=== PATIENT | male | born 1945 | race Caucasian/White ===

== ENCOUNTER 2016-07-31 19:55 | Inpatient (IN) ==
[2016-07-31] MEDS ORDERED: SODIUM CHLORIDE 0.9% 1,000 ML IV STA (20:29)
--- NOTE | 2016-07-31 21:07 | XRay Report ---
Portable chest Date: 07/31/2016 Clinical history: Shortness of breath Comparison: None Technique: Portable AP sitting chest Findings: The heart is minimally enlarged with uncoiling of the aorta. Minimal atelectasis. Degenerative changes. Impression: Minimal cardiomegaly with minimal atelectasis. PROCEDURE INTERPRETED AT [facility] DEPARTMENT OF RADIOLOGY Final Report Signed by: Dr. Shima Smith
[2016-07-31] MEDS ORDERED: ALBUTEROL/IPRATROPIUM 3 ML NEB RESP TX STA (21:31)
[2016-07-31 22:00] LABS: Basophils % 0.1 % (0.0-0.8); Eosinophils % 0.2 % (0.00-10.9); Hematocrit 43.9 VOL% (42.0-52.0); Hemoglobin 14.8 GM/DL (14.0-18.0); Immature Granulocytes % 1.2 %; Immature Granulocytes Absolute 0.19 #; Lymphocytes # 0.8 10*3/uL (1.4-4.0); Lymphocytes % 5.2 % (21.2-54.2); Mean Corpuscular HGB Conc 33.7 GM/DL (32-36); Mean Corpuscular Hemoglobin 29 PG (27-34); Mean Corpuscular Volume 84.6 FL (87-102); Mean Platelet Volume 10.4 FL (9.6-12.0); Monocytes # 1.1 10*3/uL (0.11-0.8); Neutrophils % 86.3 % (38.7-73.9); Platelet Count 150 T/CUMM (130-400); Red Blood Count 5.19 MC/CUMM (3.8-5.5); Red Cell Distribution Width 14.8 % (9.3-17.3); White Blood Count 16.2 T/CUMM (4-12)
[2016-07-31 22:08] LABS: Apearance,Urine Slightly Hazy (Clear); Bacteria,Urine Moderate /HPF (Few); Bilirubin,Urine Negative (Negative); Blood, Urine Large mg/dL (Negative); Glucose,Urine (UA) Negative (Negative); Granular Casts,Urine 1 /LPF (0-1); Ketones,Urine 20 mg/dL (Negative); Mucus,Urine Occasional /LPF (Occasional); Nitrite,Urine Negative (Negative); Protein,Urine 100 MG/DL; RBC,Urine 289 /HPF (0-4); Squamous Epithelial Cell,Urine Occasional /HPF (0-10); Urine Color Yellow (Yellow); Urine Specific Gravity 1.023 (1.001-1.035); WBC,Urine 33 /HPF (0-6)
[2016-07-31 22:14] LABS: INR 1.1; PT Patient Result 11.9 SECS; Partial Thromboplastin Time 33.1 SECS (0-40)
[2016-07-31 22:25] LABS: Albumin 3.1 G/DL (3.4-5.0); Bilirubin,Total 0.7 MG/DL (0.2-1.0); Calcium 8.3 MG/DL (8.5-10.1); Osmolality,Calculated 278.8 MOS/KG (273-304); Potassium 4.4 MMOL/L (3.5-5.1); Total Protein 6.6 G/DL (6.4-8.3)
[2016-07-31] MEDS ORDERED: ONDANSETRON 4 MG/2 ML VIAL ONE (22:27)
[2016-07-31] MEDS ORDERED: MORPHINE 2 MG/1 ML SYRINGE ONE (22:28)
[2016-07-31] MEDS ORDERED: ONDANSETRON 4 MG/2 ML VIAL IV STA (22:33)
[2016-07-31] MEDS ORDERED: MORPHINE 2 MG/1 ML SYRINGE IV STA (22:33)
[2016-07-31] MEDS ORDERED: HYDROmorphone 2 MG/1 ML VIAL ONE (23:47)
[2016-07-31] MEDS ORDERED: HYDROmorphone 2 MG/1 ML VIAL IV STA (23:49)
--- NOTE | 2016-08-01 02:07 | Emergency Department Note ---
Earl Hastings Brittany, am scribing for, and in the presence of, Herminio Oviedo MD 20:41. Preet Hastings William S., MD, personally performed the services described in this documentation, ascribed by Verena Elliott in my presence, and it is both accurate and complete . Arrival - Arrival Chief Complaint: Urogenital - Male ED Nursing Triage Note: C/O Urinary retention. Onset for a while, but worsened tonight and he couldn't void at all. Pt was seen by Dr. Suarez Monday for urinary hesitancy and is planned to have a procedure done at the end of the month- Pt doesn't know exactly what he is going to do. Pt reports that he has had this problem for a while and it seems to be getting worse. A fishman and leg bag was placed block captain. Pt received rocephin block captain Mode of Arrival: Stretcher Limitations: No Limitations Source: Patient, Significant other - History of Present Illness HPI Narrative: This is a 71 y/o white male,who presents to the ED by EMS with c/o urinary retention which started 13 days ago. His states he was seen on 07/[address] Suarez. His states pt has been cathed 5 different times in the past 13 days. His reports he has had a decreased PO intake, and confusion along with the urinary retention. Per EMS, pt was given Rocephin WEEKEND CAREGIVER and a fishman and leg bag was placed. Pt has no other complaints/pain in the ED at this time. Pt has a PMHx of HTN, peripheral neuropathy, GERD, back/neck problems, and degenerative disk disease. Pt has had a cholecystectomy, orthopedic surgery, spinal surgery, and total knee replacement. Pt denies a family medical Hx. Pt denies a social Hx. Onset (ago): day(s) (Started 13 days ago) Consistency: constant Severity: moderate Allergies/Adverse Reactions: Allergies Allergy/AdvReac Type Severity Reaction Status Date / Time No Known Allergies Allergy Verified 07/14/16 10:03 Home Medications: Home Medications Medication Instructions Recorded Confirmed Type Gabapentin Cap/Tab [Neurontin 300 mg PO BID 07/13/16 07/14/16 History Cap/Tab] HYDROcodone/ACETAMIN 7.5-325 1 tablet PO BID PRN 07/13/16 07/14/16 History [[place] 7.5-325] Omeprazole 40 mg PO BID 07/13/16 07/14/16 History Primidone 100 mg PO BEDTIME 07/13/16 07/14/16 History Propranolol Tab [Inderal Tab] 40 mg PO DAILY 07/13/16 07/14/16 History Tamsulosin [Flomax] 0.4 mg PO BID 07/13/16 07/14/16 History tiZANidine [Zanaflex] 4 mg PO BID 07/13/16 07/14/16 History traZODone [Desyrel] 50 mg PO BEDTIME 07/13/16 07/14/16 History Review of System - Review of System 12 point system: reviewed and no additional remarkable complaints except as stated - Review of System Genitourinary male: Present: other (Urinary retention ) Neurological: Present: confusion Additional ROS comments: Decreased PO Intake Medical,Surgical,& Family Hx - Medical History Cardio: History of: Hypertension Neurology: History of: Peripheral Neuropathy No history of: Seizures HEENT: History of: Eye Problem (glasses) Respiratory: No history of: Pneumonia (NO PNEUM VAC), Respiratory Problems (FLU VAC 2016) Gastrointestinal: History of: GERD Musculoskeletal: History of: Back/Neck Problems (Lumbar Disc Protrusion;Spinal Stenosis;Radiculopathy;PAIN), Degenerative Disk Disease (LUMBAR), Musculoskeletal Problems (BILATERAL KNEE PAIN) Other: No history of: Anesthesia Reactions - Surgical History Abdominal Surgeries: Surgical HX of: Cholecystectomy (PER DR. SUN'S HP) Orthopedic Surgeries: Surgical HX of;: Orthopedic Surgery (ELBOW SURGERY), Spinal Surgery (BACK SURGERY PER DR. SUN'S HP), Total Knee Replacement - Social History Smoking Status: Never smoker Frequency of Alcohol Use: None Type of Drug Use: None Exam Vital Signs: Vital Signs Temperature 98.8 F 07/31/16 19:55 Pulse Rate 125 H 08/01/16 01:00 Respiratory Rate 20 08/01/16 01:00 Blood Pressure 139/104 08/01/16 01:00 O2 Sat by Pulse Oximetry 94 L 08/01/16 01:00 - General General appearance: alert, in no apparent distress - Head Head exam: Present: atraumatic, normocephalic, normal inspection - Eye Eye exam: Present: normal appearance, PERRL, EOMI. Absent: conjunctival injection, nystagmus, miosis, mydriasis - ENT ENT exam: Present: normal exam, normal oropharynx, mucous membranes moist - Neck Neck exam: Present: normal inspection, full ROM, trachea midline. Absent: tenderness, meningismus, lymphadenopathy, thyromegaly - Chest Chest inspection: Present: normal inspection, symmetric chest wall rise. Absent : tenderness, rash, abscess - Respiratory Respiratory exam: Present: normal lung sounds bilaterally. Absent: rales, respiratory distress, rhonchi, stridor, wheezes - Cardiovascular Cardiovascular exam: Present: tachycardia, normal heart sounds - Abdominal Exam Abdominal exam: Present: soft, normal bowel sounds. Absent: distention, tenderness, guarding, rebound, rigidity - Rectal Exam Rectal exam: Present: deferred - Extremities Exam Extremities exam: Present: normal inspection, full ROM, normal capillary refill. Absent: tenderness, pedal edema, joint swelling, calf tenderness - Back Exam Back exam: Present: normal inspection, full ROM. Absent: tenderness, CVA tenderness (R), CVA tenderness (L), muscle spasm, rashes - Neurological Exam Neurological exam: Present: alert, oriented X3, CN II-XII intact, other (Slow speech pattern). Absent: motor sensory deficit - Psychiatric Psychiatric exam: Present: normal affect, normal mood. Absent: depressed, agitated, anxious, flat affect, manic - Skin Skin exam: Present: warm, dry, intact, normal color. Absent: rash, cyanosis, diaphoresis, erythema, pallor, mottled Course - Reevaluation(s) Reevaluation #1: Patient is evaluated on multiple occasions during the course of the ER stay. Patient has a fluctuating blood pressure significant hypotension on multiple occasions. Patient was aggressively fluid resuscitated with 2 L of fluid. Patient's blood pressure stabilized at this time and the patient is clinically improved. Even after the patient's pressure has been stabilized she continues to have episodes where his pressure drops into the 80s and 90s systolic. CT scan of the abdomen and pelvis was obtained which did show evidence of infection confined to the area of the bladder and prostate but no evidence of perinephric stranding. No other acute abnormalities consistent with infection were seen on the abdominal pelvic CT. A CT scan of the head is also obtained which does not show any evidence of intracranial abnormality. The patient is clinically improved at this time and states that he feels better. Cornel count does return at 16,000. The patient's hemoglobin is stable. The patient will be admitted to the ICU at this time for further evaluation and treatment. Results - Labs CBC & BMP: 07/31/16 21:13 07/31/16 20:44 - Diagnostic Findings Procedure: Chest x-ray: report reviewed by me (Minimal cardiomegaly with minimal atelectasis. ) Critical Care Time Total Critical Care Time: 35 Attestation: ER physician time exclusive of procedures is noted Disposition Clinical Impression: Acute retention of urine, Prostatitis, Hypotension, Volume depletion Case discussed with: patient, patient's family Disposition: Still a Patient Condition: Guarded Time of Disposition: 02:07
--- NOTE | 2016-08-01 02:38 | Hospitalist History & Physical ---
Assessment and Plan (1) Sepsis Status: Acute Assessment and plan: With events of hypotension patient is to be admitted to the intensive care unit. More than likely the patient has a urogenital infection given his multiple catheterizations that he has had been just a few days. He will be started on broad-spectrum antibiotics to cover suspect pathogens that would include gram-negative rods enterococcus and other gram-positive organisms. Patient will be put on P penicillin tazobactam 3.375 g IV every 8 hours (serum creatinine is 1.4 in the 71-year-old gentleman), gentamicin 160 mg IV daily for 3 days and levofloxacin 750 mg now and 500 mg IV daily Current Visit: Yes (2) Acute retention of urine Status: Acute Assessment and plan: Liver Fishman catheter and leg back on for now. Consult urology for evaluation and management Current Visit: Yes (3) Hypotension Status: Acute Assessment and plan: Patient is being admitted to the intensive care unit. Monitor blood pressure closely. This more than likely sepsis. If it happens again and we will put the patient on pressors. When I saw the patient blood pressure was a little bit respectable. Therefore Levophed has not been instituted. The patient may need a central line for us to safely give his pressors. Current Visit: Yes (4) Prostatitis Status: Acute Assessment and plan: This will be treated as noted above. I am also waiting for report of the the CT scan of the abdomen and pelvis and this point. Current Visit: Yes History of Present Illness Chief complaint: C/O Urinary retention. History of present illness: Mr. Valencia is a 71 year old male who presents to the ED by EMS with c/o urinary retention which started 13 days ago. His states he was seen on 07/[address] Suarez. His states pt has been cathed 5 different times in the past 13 days. His reports he has had a decreased PO intake, and confusion along with the urinary retention. Per EMS, pt was given Rocephin SPECTROGRAPHER and a fishman and leg bag was placed at an outside institution (hospital). Pt has no other complaints/pain at this time but very confused and fidgety refusing to sleep and bathing and pulling off the blood pressure cuff. He has a essential tremor. Pt has a PMHx of HTN, peripheral neuropathy, GERD, back/neck problems, and degenerative disk disease. Pt has had a cholecystectomy, orthopedic surgery , spinal surgery, and total knee replacement. Pt denies a family medical Hx. Pt denies a social Hx. Onset (ago): day(s) (Started 13 days ago) Home Medications Medication Instructions Recorded Confirmed Type Gabapentin Cap/Tab [Neurontin 300 mg PO BID 07/13/16 07/14/16 History Cap/Tab] HYDROcodone/ACETAMIN 7.5-325 1 tablet PO BID PRN 07/13/16 07/14/16 History [[place] 7.5-325] Omeprazole 40 mg PO BID 07/13/16 07/14/16 History Primidone 100 mg PO BEDTIME 07/13/16 07/14/16 History Propranolol Tab [Inderal Tab] 40 mg PO DAILY 07/13/16 07/14/16 History Tamsulosin [Flomax] 0.4 mg PO BID 07/13/16 07/14/16 History tiZANidine [Zanaflex] 4 mg PO BID 07/13/16 07/14/16 History traZODone [Desyrel] 50 mg PO BEDTIME 07/13/16 07/14/16 History Allergies Allergy/AdvReac Type Severity Reaction Status Date / Time No Known Allergies Allergy Verified 07/14/16 10:03 Medical,Surgical,& Family Hx - Medical History Cardio: History of: Hypertension Neurology: History of: Peripheral Neuropathy No history of: Seizures HEENT: History of: Eye Problem (glasses) Respiratory: No history of: Pneumonia (NO PNEUM VAC), Respiratory Problems (FLU VAC 2016) Gastrointestinal: History of: GERD Musculoskeletal: History of: Back/Neck Problems (Lumbar Disc Protrusion;Spinal Stenosis;Radiculopathy;PAIN), Degenerative Disk Disease (LUMBAR), Musculoskeletal Problems (BILATERAL KNEE PAIN) Other: No history of: Anesthesia Reactions - Surgical History Abdominal Surgeries: Surgical HX of: Cholecystectomy (PER DR. SUN'S HP) Orthopedic Surgeries: Surgical HX of;: Orthopedic Surgery (ELBOW SURGERY), Spinal Surgery (BACK SURGERY PER DR. SUN'S HP), Total Knee Replacement - Social History Smoking Status: Never smoker Frequency of Alcohol Use: None Type of Drug Use: None - Constitutional Constitutional: Present: as per HPI, other (Noted acknowledging fevers or chills (per )) - Cardiovascular Cardiovascular: Present: other (Patient presented to the hospital with hypotension was given a fluid change with response however the blood prescription coming down and going back up. Documentation is scarce because the patient is pulling off the blood pressure cuff) - Respiratory Respiratory: Present: other (No symptoms and signs) - Gastrointestinal Gastrointestinal: Present: other (No symptoms or sign) - Genitourinary Genitourinary: Present: difficulty urinating, other (Urinary retention) - Musculoskeletal Musculoskeletal: Present: back pain, other (Chronic back pain) - Neurological Neurological: Present: confusion, tremor(s) - Psychiatric Psychiatric: Present: confusion Exam - Constitutional Vitals: Period Temp Pulse Resp BP Sys/Lopez Pulse Ox Last 24 Hr 98.8 F-98.8 F 113-127 20-28 105-151/70-139 94-100 General appearance: over weight - Head Head exam: Present: normal inspection, normocephalic, atraumatic - Eye Eye exam: Present: EOMI Pupils: Present: MIKE - ENT ENT exam: Present: normal exam, normal oropharynx - Neck Neck exam: Present: normal inspection - Respiratory Respiratory exam: Present: clear to auscultation bilaterally - Cardiovascular Cardiovascular exam: Present: regular rate and rhythm - GI/Abdominal GI/Abdominal exam: Present: normal bowel sounds, soft - Extremities Exam Extremities exam: Present: other (Insufficient exam because the patient refused to sit down to examine him bent over the bed denying any pain) - Neurological Exam Neurological exam: Present: alert, CN II-XII intact, other (A few) - Psychiatric Psychiatric exam: Present: other (Confused fidgety) - Skin Skin exam: Present: normal color, warm, dry Results - Labs CBC & BMP: 07/31/16 21:13 07/31/16 20:44 Lab Results: I have reviewed the past 24 hour labs (Lactic acid was only 1.3 despite the hypotensive events)
[2016-08-01] MEDS ORDERED: PIPERACILLIN/TAZOBACTAM 3,375 MG in SODIUM CHLORIDE 0.9% 100 ML IV SCH (03:30)
[2016-08-01] MEDS ORDERED: SODIUM CHLORIDE 0.9% 100 ML IV ONE (03:35)
[2016-08-01] MEDS ORDERED: PIPERACILLIN/TAZOBACTAM 3,375 MG VIAL IV ONE (03:35)
[2016-08-01] MEDS ORDERED: HALOPERIDOL 5 MG/ML AMP ONE (03:38)
[2016-08-01] MEDS ORDERED: DILTIAZEM 50 MG/10 ML VIAL IV STA (04:15)
[2016-08-01] MEDS ORDERED: DILTIAZEM 100 MG VIAL.ADD IV ONE (04:23)
[2016-08-01] MEDS ORDERED: DILTIAZEM 50 MG/10 ML VIAL IV ONE (04:23)
[2016-08-01] MEDS ORDERED: DILTIAZEM INJ 100 MG in SODIUM CHLORIDE 0.9% 100 ML IV SCH (04:30)
[2016-08-01 04:39] LABS: Basophils % 0.1 % (0.0-0.8); Eosinophils % 0.1 % (0.00-10.9); Hematocrit 46.4 VOL% (42.0-52.0); Hemoglobin 15.3 GM/DL (14.0-18.0); Immature Granulocytes Absolute 0.17 #; Lymphocytes # 1.5 10*3/uL (1.4-4.0); Lymphocytes % 8.5 % (21.2-54.2); Mean Corpuscular Hemoglobin 28 PG (27-34); Mean Corpuscular Volume 84.7 FL (87-102); Monocytes # 1.1 10*3/uL (0.11-0.8); Monocytes % 6.3 % (1.7-12.7); Neutrophils # 14.7 10*3/uL (1.4-7.4); Platelet Count 179 T/CUMM (130-400); Red Blood Count 5.48 MC/CUMM (3.8-5.5); Red Cell Distribution Width 14.7 % (9.3-17.3); White Blood Count 17.4 T/CUMM (4-12)
[2016-08-01] MEDS ORDERED: GENTAMICIN 80 MG/2 ML VIAL ONE (04:46)
[2016-08-01] MEDS: LORazepam 2 MG/1 ML VIAL IV PRN ×6 (04:50→15:50)
[2016-08-01] MEDS: GENTAMICIN INJ 160 MG in SODIUM CHLORIDE 0.9% 100 ML IV SCH (04:55)
[2016-08-01] MEDS ORDERED: LORazepam 2 MG/1 ML VIAL ONE ×2 (05:04→08:52)
[2016-08-01 05:07] LABS: Calcium 8.4 MG/DL (8.5-10.1); Magnesium 2.2 MG/DL (1.8-2.4); Osmolality,Calculated 278.8 MOS/KG (273-304); Potassium 4.4 MMOL/L (3.5-5.1)
--- NOTE | 2016-08-01 07:11 | CT Report ---
CT brain Indication: Altered level of consciousness Comparison: None available Technique: Axial CT imaging of the brain is performed without contrast with 3 mm increments. Findings: No evidence of hemorrhage, mass mass effect midline shift or acute infarct seen. There is moderate diffuse cerebral atrophy. The brain parenchyma attenuation and differentiation appears within normal limits. The ventricles and cisterns are normal in caliber. No cranial or skull base abnormality is identified. Impression: No evidence of acute findings demonstrated. This CT exam was performed using one or more the following dose reduction techniques: Automated exposure control, adjustment of the MA and/or KV according to patient size, or use of iterative reconstruction technique. PROCEDURE INTERPRETED AT [facility] DEPARTMENT OF RADIOLOGY Final Report Signed by: Dr. Sravan Laura
--- NOTE | 2016-08-01 07:41 | CT Report ---
CT abdomen pelvis Indication: Hypertension, urosepsis Comparison: None available Technique: Axial CT imaging of the abdomen and pelvis is performed without contrast. Findings: Cardiac and lung bases are within normal limits CT abdomen: The liver spleen pancreas and adrenal glands are normal in size and density. No evidence of focal lesion is demonstrated in these solid organs. Gallbladder is been removed. Kidneys are small in size and within normal limits for density. A few nonobstructing less than 2 mm calculi are present in both kidneys. No other evidence of hydronephrosis or nephrolithiasis is seen. The bowel caliber is normal and no wall thickening or adjacent inflammatory change is seen. No evidence of free fluid or free air is present. CT pelvis: The bowel appear within normal limits. The bladder is decompressed with Garrett catheter however there is some adjacent stranding. Prostate gland appears enlarged. Impression: Bladder decompressed with catheter limiting evaluation. There is some adjacent stranding which could indicate cystitis. Prostate enlargement. This CT exam was performed using one or more the following dose reduction techniques: Automated exposure control, adjustment of the MA and/or KV according to patient size, or use of iterative reconstruction technique. PROCEDURE INTERPRETED AT [facility] DEPARTMENT OF RADIOLOGY Final Report Signed by: Dr. Sravan Laura
[2016-08-01] MEDS ORDERED: LEVOFLOXACIN INJ 100 ML IV ONE (08:05)
[2016-08-01 08:10] LABS: Free T4 (Free Thyroxine) 1.71 NG/DL (0.76-1.46); Thyroid Stimulating Hormone 1.82 uIU/ml (0.358-3.74)
[2016-08-01] MEDS: LEVOFLOXACIN INJ 500 MG in PREMIX 1 EACH IV SCH (08:22)
[2016-08-01] MEDS ORDERED: TAMSULOSIN 0.4 MG CAPSULE PO ONE (09:36)
[2016-08-01] MEDS ORDERED: ENOXAPARIN 100 MG/ML SYRINGE SUBCUT ONE (09:36)
[2016-08-01] MEDS ORDERED: GABAPENTIN 300 MG CAPSULE ONE (09:36)
[2016-08-01] MEDS ORDERED: PANTOPRAZOLE 40 MG TABLET PO ONE (09:37)
[2016-08-01] MEDS ORDERED: PROPRANOLOL 20 MG TABLET ONE (09:37)
[2016-08-01] MEDS: PANTOPRAZOLE 40 MG TABLET PO SCH ×2 (09:45→21:20)
[2016-08-01] MEDS: PROPRANOLOL 40 MG TABLET PO SCH (09:45)
[2016-08-01] MEDS: ENOXAPARIN 100 MG/ML SYRINGE SUBCUT SCH (09:45)
[2016-08-01] MEDS: TAMSULOSIN 0.4 MG CAPSULE PO SCH ×2 (09:45→21:21)
[2016-08-01] MEDS: GABAPENTIN 300 MG CAPSULE PO SCH ×2 (09:45→21:21)
[2016-08-01] MEDS: LINEZOLID INJ 600 MG in PREMIX 1 EACH IV SCH ×2 (09:46→20:40)
[2016-08-01] MEDS ORDERED: SODIUM CHLORIDE 0.9% IV SCH (11:00)
[2016-08-01] MEDS ORDERED: DILTIAZEM IV SCH (11:00)
[2016-08-01] MEDS: DILTIAZEM INJ 125 MG in SODIUM CHLORIDE 0.9% 100 ML IV SCH ×2 (11:52→22:57)
[2016-08-01] MEDS: PRIMIDONE 50 MG TABLET PO SCH (21:20)
[2016-08-01] MEDS: traZODone 50 MG TABLET PO SCH (21:21)
--- NOTE | 2016-08-01 21:33 | ECHO Report ---
Jaren Valencia Exam Date: 08/01/2016 08:17 Referring Physician: Technologist: Germania Epperson Age: 71 Ht (in): 72 Wt (lb): 250 Gender: M Exam Location: [facility] Echo Indications: A fib, acute renal retention, hypotension, volume depletion, sepsis BP: 139 / 104 HR: 125 Rhythm: Atrial fibrillation with tachycardia Technical Quality: Poor IMPRESSIONS 1. Is a very limited study. 2. The left ventricle is probably upper limits of normal size with systolic function being normal at 55-60% ejection fraction. 3. The right ventricle left atrium are probably mildly dilated. 4. Normal right atrial size. 5. Mitral valve is poorly visualized and it worst probably trace to mild regurgitation. 6. Aortic valve is never visualized no gross Doppler abnormalities. 7. Tricuspid valves not active visualized nor is the pulmonic valve adequately visualized. 8. No gross evidence for elevated right-sided pressures. MEASUREMENTS (Male / Female) Normal Values 2D ECHO LV Diastolic Diameter PLAX 5.0 cm 4.2 - 5.9 / 3.9 - 5.3 cm LV Systolic Diameter PLAX 3.1 cm LV Fractional Shortening PLAX 37.7 % IVS Diastolic Thickness 1.4 cm 0.6 - 1.0 / 0.6 - 0.9 cm LVPW Diastolic Thickness 1.2 cm 0.6 - 1.0 / 0.6 - 0.9 cm RV Internal Dim ED PLAX 3.3 cm Aortic Root Diameter 3.0 cm LA Systolic Diameter LX 4.3 cm 3.0 - 4.0 / 2.7 - 3.8 cm DOPPLER TR Peak Velocity 254.0 cm/s TR Peak Gradient 25.8 mmHg FINDINGS Left Ventricle Left ventricle is probably the upper less normal size with systolic function being overall normal at least around 55-60%. No gross segmental wall motion amount is noted. Right Ventricle Mildly increased right ventricular size. Right Atrium Normal right atrial size. Left Atrium Left atrium is probably mildly dilated. Mitral Valve Mitral valve is poorly visualized. There may be some trace to mild regurgitation present. Aortic Valve Aortic valve is minimally visualized. There is no gross Doppler abnormalities. Tricuspid Valve Tricuspid valves not active visualized to comment on. Based on Doppler the estimated peak right-sided pressures are 31-36 mmHg. Pulmonic Valve Not acting visualized to comment on. No gross Doppler abnormalities. Pericardium No pericardial effusion. Aorta Normal size aortic root and proximal ascending aorta. Hang Pulido MD (Electronically Signed) Final Date: 01 August 2016 21:31
[2016-08-02 05:18] LABS: Basophils % 0.1 % (0.0-0.8); Eosinophils # 0.1 10*3/uL (0.0-0.87); Eosinophils % 0.6 % (0.00-10.9); Hematocrit 41.1 VOL% (42.0-52.0); Hemoglobin 13.8 GM/DL (14.0-18.0); Immature Granulocytes % 0.4 %; Immature Granulocytes Absolute 0.03 #; Lymphocytes # 0.5 10*3/uL (1.4-4.0); Lymphocytes % 5.8 % (21.2-54.2); Mean Corpuscular HGB Conc 33.6 GM/DL (32-36); Mean Corpuscular Hemoglobin 28 PG (27-34); Mean Corpuscular Volume 82.9 FL (87-102); Mean Platelet Volume 10.7 FL (9.6-12.0); Monocytes # 0.6 10*3/uL (0.11-0.8); Monocytes % 7.5 % (1.7-12.7); Neutrophils # 6.9 10*3/uL (1.4-7.4); Neutrophils % 85.6 % (38.7-73.9); Platelet Count 136 T/CUMM (130-400); Red Blood Count 4.96 MC/CUMM (3.8-5.5); Red Cell Distribution Width 15.1 % (9.3-17.3)
[2016-08-02 05:58] LABS: Calcium 8.6 MG/DL (8.5-10.1); Magnesium 2.3 MG/DL (1.8-2.4); Osmolality,Calculated 278.7 MOS/KG (273-304); Potassium 4.2 MMOL/L (3.5-5.1)
[2016-08-02] MEDS: GENTAMICIN INJ 160 MG in SODIUM CHLORIDE 0.9% 100 ML IV SCH (07:42)
[2016-08-02] MEDS: ENOXAPARIN 100 MG/ML SYRINGE SUBCUT SCH (07:46)
--- NOTE | 2016-08-02 07:49 | EKG Report ---
Stationary ECG Study [facility] ER Test Date: 08/01/2016 4:03:23 AM Pat Name: PORTER MOREL Department: Room: 117 Gender: M Reel Cutter: : 1945 Requested by: Herminio Savage Order Number: [id number] Joaquina MD: TRACEY BARROS Intervals [place] Rate: 145 P: 999 PA: 0 QRS: -17 QRSD: 87 T: -6 QT: 269 QTc: 353 Interpretive Statements ATRIAL FIBRILLATION WITH RAPID VENTRICULAR RESPONSE INFERIOR MYOCARDIAL INFARCTION, PROBABLY OLD Electronically Signed On 08-03-16 12:38:25 CDT by TRACEY BARROS [email or web address]
[2016-08-02] MEDS: LEVOFLOXACIN INJ 500 MG in PREMIX 1 EACH IV SCH (08:26)
[2016-08-02] MEDS ORDERED: NIFEdipine 10 MG CAPSULE PO PRN (08:38)
--- NOTE | 2016-08-02 08:44 | Hospitalist Progress Note ---
Assessment and Plan (1) Prostatitis Status: Chronic Current Visit: Yes Qualifiers: Prostatitis type: chronic Qualified Code(s): N41.1 - Chronic prostatitis (2) Sepsis Status: Acute Assessment and plan: The patient appears to have gram-negative sepsis due to urinary infection on account of urinary retention. The patient will be transferred to the floor as hemodynamics are improved. We will add some blood pressure medication and asked his to sit with him. The patient will continue his usual home medicines except for Zanaflex. We will recheck electrolytes tomorrow. Current Visit: Yes Qualifiers: Sepsis type: Escherichia coli Qualified Code(s): A41.51 - Sepsis due to Escherichia coli [E. coli] Hospitalist: Subjective Interval history: The patient is alert and without complaint. The patient has been cooperative overnight and does not require restraints this morning. Hemodynamics are improved and the patient is ready for transfer to the floor. He does not complain of shortness of breath angina or abdominal pain. Exam - Constitutional Vitals: Period Temp Pulse Resp BP Sys/Lopez Pulse Ox Last 24 Hr 96.4 F-97.2 F 76-103 16-28 80-151/57-128 91-100 Exam: Constitutional System: Mild distress. Mild tremulousness. Head: Normocephalic, atraumatic. Ears, Nose and Throat System: No evidence of Otitis or Mastoiditis. No epistaxis or discharge Eyes System: Pupils equal, round, and reactive. Extraocular muscles intact. Neck: Supple, without adenopathy, No jugular venous distention. No thyromegaly , neck mass, or prior surgery apparent. Respiratory System: Chest clear to auscultation. Cardiovascular System: Heart with regular rate and rhythm. No murmur. GI System: Abdomen soft, nontender. Normo active bowel sounds present. Garrett catheter in place and draining clear urine. Results - Labs CBC & BMP: 08/02/16 04:54 08/02/16 04:54 Lab Results: I have reviewed the past 24 hour labs
--- NOTE | 2016-08-02 09:18 | Urology Consultation ---
Assessment and Plan - Time spent with patient Time spent with patient: Greater than 30 minutes (1) Acute retention of urine Status: Acute Current Visit: Yes (2) Sepsis Status: Acute Assessment and plan: Treat as we are. When he recovers we will need to begin intermittent catheterization. He will need cystoscopy sometime. Current Visit: Yes Qualifiers: Sepsis type: Escherichia coli Qualified Code(s): A41.51 - Sepsis due to Escherichia coli [E. coli] History of Present Illness - Data of Consult Patient: known to practice within the last 3 years Consult date: 08/02/16 Requesting Physician: Jonathan Giles - Consult Narrative Reason for consult: Urinary retention, urosepsis History of present illness: Mr. Valencia is a 71 year old male who I recently saw on 07/27/16. I had seen him years before that. He was in urinary retention and had a catheter in place from the emergency department. He is on Flomax twice a day. We remove the catheter and consult home health for intermittent catheterization if he continues to have a voiding problem. My nurse talk to him and he said he was voiding fine. We will clearly he was not. He developed retention again went to an outside hospital had a catheter placed and then in short order became septic. He is now in ICU and improving. His initial white count was elevated he was hypotensive. Cultures are pending. But I suspect he will be gram negatives. He has CT scan abdomen and pelvis without contrast did not reveal any hydronephrosis. He has bilateral small renal stones. That was the reason why I saw him years ago was for nephrolithiasis. He is improving at this point. We will continue catheterization. He is on numerous medicines that can inhibit his bladder. Gabapentin, hydrocodone, primidone, Zanaflex, trazodone all can inhibit the bladder function. The difficulty will be when he is recovered how we get this patient to be catheterized. I am not sure he can do it and he and his live together but they have been in separate bedrooms for 20 years. CC: Jonathan Giles MD - Home Medications and Allergies Home Medications: Home Medications Medication Instructions Recorded Confirmed Type Gabapentin Cap/Tab [Neurontin 300 mg PO BID 07/13/16 08/01/16 History Cap/Tab] HYDROcodone/ACETAMIN 7.5-325 1 tablet PO BID PRN 07/13/16 08/01/16 History [[place] 7.5-325] Omeprazole 40 mg PO BID 07/13/16 08/01/16 History Primidone 100 mg PO BEDTIME 07/13/16 08/01/16 History Propranolol Tab [Inderal Tab] 40 mg PO DAILY 07/13/16 08/01/16 History Tamsulosin [Flomax] 0.4 mg PO BID 07/13/16 08/01/16 History tiZANidine [Zanaflex] 4 mg PO BID 07/13/16 08/01/16 History traZODone [Desyrel] 50 mg PO BEDTIME 07/13/16 08/01/16 History Allergies/Adverse Reactions: Allergies Allergy/AdvReac Type Severity Reaction Status Date / Time No Known Allergies Allergy Verified 07/14/16 10:03 12 point system: reviewed and no additional remarkable complaints except as stated - Genitourinary Genitourinary: Present: other (Urinary retention) Exam - Constitutional Vitals: Period Temp Pulse Resp BP Sys/Lopez Pulse Ox Last 24 Hr 96.4 F-97.2 F 76-103 16-28 80-151/57-128 91-100 - GI/Abdominal GI/Abdominal exam: Present: tenderness (Suprapubic), soft. Absent: ascites, distended, firm, guarding, mass, rebound - Genitourinary Genitourinary: scrotum without lesions, cysts, edema or rash, penis with no lesions or discharge, diffusely enlarged prostate without tenderness Results - Labs CBC & BMP: 08/02/16 04:54 08/02/16 04:54 Lab Results: I have reviewed the past 24 hour labs - Diagnostic Findings Procedure: CT Abdomen and Pelvis: report reviewed by me (Bilateral stones, no hydronephrosis)
[2016-08-02] MEDS: LINEZOLID INJ 600 MG in PREMIX 1 EACH IV SCH ×2 (09:22→22:09)
[2016-08-02] MEDS: ENOXAPARIN 30 MG/0.3 ML SYRINGE SUBCUT SCH (09:29)
[2016-08-02] MEDS: PANTOPRAZOLE 40 MG TABLET PO SCH (09:44)
[2016-08-02] MEDS: ENALAPRIL 10 MG TABLET PO SCH ×2 (09:45→21:14)
[2016-08-02] MEDS: PROPRANOLOL 40 MG TABLET PO SCH (09:45)
[2016-08-02] MEDS: TAMSULOSIN 0.4 MG CAPSULE PO SCH ×2 (09:45→21:15)
[2016-08-02] MEDS: GABAPENTIN 300 MG CAPSULE PO SCH ×2 (09:47→21:15)
--- NOTE | 2016-08-02 11:46 | Physician Query Form ---
CLICK EDIT DOCUMENT TO SELECT QUERY ANSWER --> OK --> SIGN Agata Green RN, CCDS Certified Clinical Verification Clerk W) [phone] (f) [phone] [email or web address] PROVIDERS: Make your selection(s) from the choices in EACH section by typing an "x" and enter comments in the comment section. Please use your independent medical judgment in providing your response. This request does not imply that any particular answer is desired or expected. CLINICAL INDICATORS: (Providers should not edit this section) The medical record indicates that the patient was admitted with Sepsis/ UTI, Confusion, "will add restraints to protect the physis and the patient from wandering from the bed' and the patient had a CT of the brain. ACUITY: ( X) Acute ( ) Acute on Chronic ( ) Chronic ( ) Clinically unable to determine NATURE: (X ) Delirium due to general medical condition ( ) Dementia ( ) Encephalopathy / Infectious/ ( ) Other, please specify: ( ) Clinically unable to determine Please indicate the underlying cause of the altered mental status (CHECK ALL THAT APPLY): ( ) Baseline dementia ( ) Psychiatric illness ( ) Other, please specify: ( ) Clinically unable to determine Please indicate if there is an infection, sepsis, dehydration or specific organ failure that is causing the dementia. Be specific with clarifying the relationship between that process and the mental status change. COMMENTS: Use of terms such as suspected, likely, or probable (associated with a specific diagnosis that is being evaluated, monitored, or treated as if it exists) are acceptable and can be restated in the discharge summary if not ruled out. MTDD
[2016-08-02] MEDS: PRIMIDONE 50 MG TABLET PO SCH (21:14)
[2016-08-02] MEDS: traZODone 50 MG TABLET PO SCH (21:15)
[2016-08-02] MEDS: LACTOBACILLUS ACIDOPHILUS/BULGARICUS CAPLET PO SCH (21:15)
[2016-08-02] MEDS: CHOLESTYRAMINE 4 GM PACK PO SCH (22:16)
[2016-08-03 06:56] LABS: Basophils % 0.1 % (0.0-0.8); Eosinophils # 0.2 10*3/uL (0.0-0.87); Eosinophils % 2.7 % (0.00-10.9); Hematocrit 41.4 VOL% (42.0-52.0); Hemoglobin 14.3 GM/DL (14.0-18.0); Immature Granulocytes % 0.7 %; Immature Granulocytes Absolute 0.05 #; Lymphocytes # 0.7 10*3/uL (1.4-4.0); Lymphocytes % 10.5 % (21.2-54.2); Mean Corpuscular HGB Conc 34.5 GM/DL (32-36); Mean Corpuscular Hemoglobin 28 PG (27-34); Mean Corpuscular Volume 81.2 FL (87-102); Monocytes # 0.7 10*3/uL (0.11-0.8); Monocytes % 9.9 % (1.7-12.7); Neutrophils # 5.1 10*3/uL (1.4-7.4); Neutrophils % 76.1 % (38.7-73.9); Platelet Count 178 T/CUMM (130-400); White Blood Count 6.8 T/CUMM (4-12)
[2016-08-03 07:21] LABS: Calcium 8.7 MG/DL (8.5-10.1); Magnesium 2.1 MG/DL (1.8-2.4); Osmolality,Calculated 274.8 MOS/KG (273-304); Potassium 3.8 MMOL/L (3.5-5.1)
[2016-08-03] MEDS: LEVOFLOXACIN INJ 500 MG in PREMIX 1 EACH IV SCH (09:17)
[2016-08-03] MEDS: ENALAPRIL 10 MG TABLET PO SCH ×2 (09:17→20:29)
[2016-08-03] MEDS: CHOLESTYRAMINE 4 GM PACK PO SCH ×2 (09:17→21:34)
[2016-08-03] MEDS: PANTOPRAZOLE 40 MG TABLET PO SCH (09:17)
[2016-08-03] MEDS: GABAPENTIN 300 MG CAPSULE PO SCH (09:17)
[2016-08-03] MEDS: PROPRANOLOL 40 MG TABLET PO SCH (09:17)
[2016-08-03] MEDS: TAMSULOSIN 0.4 MG CAPSULE PO SCH ×2 (09:17→20:30)
[2016-08-03] MEDS: ENOXAPARIN 30 MG/0.3 ML SYRINGE SUBCUT SCH (09:18)
--- NOTE | 2016-08-03 10:19 | Hospitalist Progress Note ---
Assessment and Plan (1) Prostatitis Status: Chronic Current Visit: Yes Qualifiers: Prostatitis type: chronic Qualified Code(s): N41.1 - Chronic prostatitis (2) Sepsis Status: Acute Assessment and plan: The patient appears to have gram-negative sepsis due to urinary infection on account of urinary retention. The patient will be continue antibiotic care with Cipro and Zyvox. Culture reports do not report any growth. The patient appears more calm today, less diaphoretic, and there is less redness. We will continue antibiotics for now and recheck electrolytes tomorrow. Current Visit: Yes Qualifiers: Sepsis type: Escherichia coli Qualified Code(s): A41.51 - Sepsis due to Escherichia coli [E. coli] Hospitalist: Subjective Interval history: The patient is resting quietly in bed. He had discomfort over the evening due to urinary catheter. Patient is not complaining of any pain at the present time the patient is sedated with pain medication. I discussed the patient's progress to date with his son in the room. I reviewed Dr. Suarez note and consultation. Exam - Constitutional Vitals: Period Temp Pulse Resp BP Sys/Lopez Pulse Ox Last 24 Hr 97.4 F-98.1 F 87-115 16-22 95-128/69-91 94-99 Exam: Constitutional System: Mild distress. Mild tremulousness. Head: Normocephalic, atraumatic. Ears, Nose and Throat System: No evidence of Otitis or Mastoiditis. No epistaxis or discharge Eyes System: Pupils equal, round, and reactive. Extraocular muscles intact. Neck: Supple, without adenopathy, No jugular venous distention. No thyromegaly , neck mass, or prior surgery apparent. Respiratory System: Chest clear to auscultation. Cardiovascular System: Heart with regular rate and rhythm. No murmur. GI System: Abdomen soft, nontender. Normo active bowel sounds present. Garrett catheter in place and draining clear urine. Results - Labs CBC & BMP: 08/03/16 06:22 08/03/16 06:22 Lab Results: I have reviewed the past 24 hour labs
[2016-08-03] MEDS: GENTAMICIN INJ 160 MG in SODIUM CHLORIDE 0.9% 100 ML IV SCH (11:51)
[2016-08-03] MEDS: LINEZOLID INJ 600 MG in PREMIX 1 EACH IV SCH ×2 (12:59→20:24)
[2016-08-03] MEDS ORDERED: LACTOBACILLUS ACIDOPHILUS/BULGARICUS CAPLET PO SCH ×2 (17:24→21:00)
--- NOTE | 2016-08-03 17:54 | Urology Progress Note ---
Assessment and Plan (1) Acute retention of urine Status: Acute Current Visit: Yes (2) Sepsis Status: Acute Assessment and plan: Treat as we are. When he recovers we will need to begin intermittent catheterization. He will need cystoscopy sometime. Current Visit: Yes Qualifiers: Sepsis type: Escherichia coli Qualified Code(s): A41.51 - Sepsis due to Escherichia coli [E. coli] Urology - PN: Subj Interval history: Patient is feeling better but still weak. The difficulty with this case will be catheterization. I am not sure he can do it but I am going to try. I will cystoscope him on Monday. I am not sure a TUR would help him. The question is whether he he will have a strong enough bladder to overcome this or whether his bladder is weak. I had a long discussion with the son considering all of this. Exam - Constitutional Vitals: Period Temp Pulse Resp BP Sys/Lopez Pulse Ox Last 24 Hr 97.3 F-98.1 F 93-115 16-22 91-128/66-91 95-100 Results - Labs CBC & BMP: 08/03/16 06:22 08/03/16 06:22
[2016-08-03] MEDS: PRIMIDONE 50 MG TABLET PO SCH (20:29)
[2016-08-03] MEDS: traZODone 50 MG TABLET PO SCH (20:30)
[2016-08-03] MEDS: LACTOBACILLUS ACIDOPHILUS/BULGARICUS CAPLET PO SCH (20:30)
[2016-08-03] MEDS: DESITIN 4OZ/NYSTATIN 15 GRAM MIXTURE PASTE TOP SCH (20:33)
[2016-08-04 05:58] LABS: Basophils % 0.3 % (0.0-0.8); Eosinophils # 0.2 10*3/uL (0.0-0.87); Eosinophils % 3.7 % (0.00-10.9); Hematocrit 39.5 VOL% (42.0-52.0); Hemoglobin 13.3 GM/DL (14.0-18.0); Immature Granulocytes Absolute 0.06 #; Lymphocytes % 16.1 % (21.2-54.2); Mean Corpuscular HGB Conc 33.7 GM/DL (32-36); Mean Corpuscular Hemoglobin 28 PG (27-34); Mean Corpuscular Volume 82.5 FL (87-102); Mean Platelet Volume 10.4 FL (9.6-12.0); Monocytes # 0.6 10*3/uL (0.11-0.8); Monocytes % 9.9 % (1.7-12.7); Neutrophils # 4.3 10*3/uL (1.4-7.4); Platelet Count 192 T/CUMM (130-400); Red Blood Count 4.79 MC/CUMM (3.8-5.5); Red Cell Distribution Width 15.1 % (9.3-17.3); White Blood Count 6.2 T/CUMM (4-12)
[2016-08-04 06:10] LABS: Calcium 9.1 MG/DL (8.5-10.1); Magnesium 2.3 MG/DL (1.8-2.4); Osmolality,Calculated 277.5 MOS/KG (273-304); Potassium 3.7 MMOL/L (3.5-5.1)
--- NOTE | 2016-08-04 07:17 | Urology Progress Note ---
Assessment and Plan (1) Acute retention of urine Status: Acute Current Visit: Yes (2) Sepsis Status: Acute Assessment and plan: Treat as we are. When he recovers we will need to begin intermittent catheterization. He will need cystoscopy sometime. Current Visit: Yes Qualifiers: Sepsis type: Escherichia coli Qualified Code(s): A41.51 - Sepsis due to Escherichia coli [E. coli] Urology - PN: Subj Interval history: Patient's cultures are all negative. Urine and blood. He had not been on antibiotics previously. So this does not look like this was urosepsis. He has been having some GI symptoms and this could may well have been colitis. He will be cystoscoped tomorrow. Exam - Constitutional Vitals: Period Temp Pulse Resp BP Sys/Lopez Pulse Ox Last 24 Hr 97.2 F-98.1 F 93-115 17-24 91-128/66-79 95-100 Results - Labs CBC & BMP: 08/04/16 05:15 08/04/16 05:15
[2016-08-04] MEDS: PROPRANOLOL 40 MG TABLET PO SCH (08:39)
[2016-08-04] MEDS: PANTOPRAZOLE 40 MG TABLET PO SCH ×2 (08:39→21:13)
[2016-08-04] MEDS: ENALAPRIL 10 MG TABLET PO SCH ×2 (08:39→20:28)
[2016-08-04] MEDS: ENOXAPARIN 30 MG/0.3 ML SYRINGE SUBCUT SCH (08:39)
[2016-08-04] MEDS: TAMSULOSIN 0.4 MG CAPSULE PO SCH ×2 (08:39→20:26)
[2016-08-04] MEDS: LEVOFLOXACIN INJ 500 MG in PREMIX 1 EACH IV SCH (08:40)
[2016-08-04] MEDS: CHOLESTYRAMINE 4 GM PACK PO SCH ×3 (08:40→21:13)
[2016-08-04] MEDS: DESITIN 4OZ/NYSTATIN 15 GRAM MIXTURE PASTE TOP SCH ×2 (08:44→21:13)
[2016-08-04] MEDS: LINEZOLID INJ 600 MG in PREMIX 1 EACH IV SCH ×2 (09:54→20:19)
--- NOTE | 2016-08-04 10:35 | Hospitalist Progress Note ---
Assessment and Plan (1) Prostatitis Status: Chronic Current Visit: Yes Qualifiers: Prostatitis type: chronic Qualified Code(s): N41.1 - Chronic prostatitis (2) Sepsis Status: Acute Assessment and plan: The patient appears to have gram-negative sepsis due to urinary infection on account of urinary retention. The patient will be continue antibiotic care with Cipro and Zyvox. Culture reports do not report any growth. The patient appears more calm each day, less diaphoretic, and there is less redness. We will continue antibiotics for now and prepare for cystoscopy tomorrow. Current Visit: Yes Qualifiers: Sepsis type: Escherichia coli Qualified Code(s): A41.51 - Sepsis due to Escherichia coli [E. coli] Hospitalist: Subjective Interval history: The patient is resting quietly in bed. The patient has no delirium today and has less anxiety. Dr. Suarez has discussed treatment options with the patient and son. Dr. Suarez plans for cystoscopy tomorrow. The patient has negative blood cultures and urine cultures but I feel that urinary sepsis is still the most likely diagnosis for the patient's illness and he is responding appropriately to care for that sepsis. Exam - Constitutional Vitals: Period Temp Pulse Resp BP Sys/Lopez Pulse Ox Last 24 Hr 97.2 F-97.9 F 93-99 18-24 91-135/66-77 98-100 Exam: Constitutional System: No distress or tremulousness Head: Normocephalic, atraumatic. Ears, Nose and Throat System: No evidence of Otitis or Mastoiditis. No epistaxis or discharge Eyes System: Pupils equal, round, and reactive. Extraocular muscles intact. Neck: Supple, without adenopathy, No jugular venous distention. No thyromegaly , neck mass, or prior surgery apparent. Respiratory System: Chest clear to auscultation. Cardiovascular System: Heart with regular rate and rhythm. No murmur. GI System: Abdomen soft, nontender. Normo active bowel sounds present. Garrett catheter in place and draining clear urine. Results - Labs CBC & BMP: 08/04/16 05:15 08/04/16 05:15 Lab Results: I have reviewed the past 24 hour labs
[2016-08-04] MEDS: ALUMINUM/MAGNES/SIMETH MAX STR 30 ML UDCUP PO PRN ×2 (12:20→20:27)
--- NOTE | 2016-08-04 15:56 | XRay Report ---
History: Abdominal pain Date: 08/04/2016 Study: KUB Comparison exam: No previous abdominal x-ray The bowel gas pattern is nonspecific without gross mass lesion. No definite radiopaque calculi are seen. Phleboliths overlie the pelvis. Surgical clips overlie the right upper abdomen. Pedicular screws and rods stabilize the posterior elements of L4-S1. Impression: No acute abdominal process PROCEDURE INTERPRETED AT [facility] DEPARTMENT OF RADIOLOGY Final Report Signed by: Dr. Megan Adams
[2016-08-04] MEDS: PRIMIDONE 50 MG TABLET PO SCH (20:24)
[2016-08-04] MEDS: LACTOBACILLUS ACIDOPHILUS/BULGARICUS CAPLET PO SCH (20:25)
[2016-08-04] MEDS: traZODone 50 MG TABLET PO SCH (20:26)
[2016-08-04] MEDS ORDERED: METOPROLOL TARTRATE 5 MG/5 ML VIAL IV PRN (23:43)
[2016-08-05] MEDS: ALUMINUM/MAGNES/SIMETH MAX STR 30 ML UDCUP PO PRN (00:39)
[2016-08-05] MEDS: ENALAPRIL 10 MG TABLET PO SCH ×2 (07:42→08:46)
[2016-08-05] MEDS: PROPRANOLOL 40 MG TABLET PO SCH ×2 (07:42→08:45)
[2016-08-05] MEDS: LEVOFLOXACIN INJ 500 MG in PREMIX 1 EACH IV SCH (08:29)
[2016-08-05] MEDS: DESITIN 4OZ/NYSTATIN 15 GRAM MIXTURE PASTE TOP SCH (10:01)
[2016-08-05] MEDS: PANTOPRAZOLE 40 MG TABLET PO SCH (10:01)
[2016-08-05] MEDS: CHOLESTYRAMINE 4 GM PACK PO SCH (10:02)
[2016-08-05] MEDS: TAMSULOSIN 0.4 MG CAPSULE PO SCH (10:04)
[2016-08-05] MEDS: ENOXAPARIN 30 MG/0.3 ML SYRINGE SUBCUT SCH (10:05)
[2016-08-05] MEDS: LINEZOLID INJ 600 MG in PREMIX 1 EACH IV SCH (10:24)
[2016-08-05] MEDS ORDERED: NEOMYCIN/POLYMYXIN IRRIG SOLN 1 ML AMP BLADDERIRR ONE (11:20)
--- NOTE | 2016-08-05 11:41 | Operative Note ---
Date of procedure: 08/05/16 Pre-op diagnosis: BPH with urinary retention Post-op diagnosis: same Procedure: 71-year-old gentleman with urinary retention. He was admitted the hospital thought to be uroseptic but his cultures are negative may well have had colitis. He is brought in for cystoscopy. Patient brought endoscopic air prepared and draped in usual sterile manner. Previous Garrett had been removed. 2% Xylocaine jelly is placed in urethra and bladder for anesthesia. Flexible 16 [place] cystourethroscope passed under direct vision. Urethra normal. Prostate is 2-1/2-3 fingerbreadths trilobar obstruction. 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 Ureteral orifices in normal clear reflux. The cystoscope removed. A 16 Garrett catheter was reinserted and left to gravity drainage. Patient tolerated procedure well was sent to his room in good condition. Implants: 16 Garrett Anesthesia: local Surgeon / Physician: Brandt Suarez Estimated blood loss: none Specimens: none sent Condition: stable Disposition: floor Results - Labs CBC & BMP: 08/04/16 05:15 08/04/16 05:15 Discharge Plan - Discharge Medications No Action Gabapentin Cap/Tab [Neurontin Cap/Tab] 300 mg PO BID traZODone [Desyrel] 50 mg PO BEDTIME HYDROcodone/ACETAMIN 7.5-325 [[place] 7.5-325] 1 tablet PO BID PRN PRN Reason: Pain tiZANidine [Zanaflex] 4 mg PO BID Tamsulosin [Flomax] 0.4 mg PO BID Propranolol Tab [Inderal Tab] 40 mg PO DAILY Omeprazole 40 mg PO BID Primidone 100 mg PO BEDTIME - Follow Up or Referral - Forms/Instructions
[2016-08-05 12:30] VITALS: BP 140/90
--- NOTE | 2016-08-05 13:42 | Discharge Summary ---
Hospital Course - Hospital Course Hospital Course: The patient was admitted the hospital with sepsis syndrome. He improved with treatment for gram-negative bacteremia. The patient had delirium at the time of admission. Sensorium is clearing but he still has some memory loss. The patient has urinary retention. Dr. Suarez has been seeing him for about a month for the retention. 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 Suarez requested that we leave the Garrett catheter in place and discharged home on Avodart. The patient was already taking Flomax. Dr. Suarez will consider prostate surgery in the near future to try to reduce the bladder outlet obstruction and remove the Garrett catheter. The patient has some diarrhea at the time of discharge so we will send him home with Flagyl. We will obtain C. difficile stool study prior to discharge. On the date of discharge chest is clear, the patient's diaphoresis is resolved, abdomen soft. Discharge [id number] time 32 minutes. - Time spent with patient Time with patient DS: Greater than 30 minutes Diagnosis - Discharge Diagnosis (1) Prostatitis Status: Chronic (2) Sepsis Status: Resolved Specialty Discharge - Follow Up or Referrals Follow up with: Brandt Suarez MD [Physician] - 08/16/16 2:45 am Discharge Plan - Discharge Data Disposition: Disch To Home/Self Care Condition at Discharge: Stable Discharge Diet: advance to your usual diet Activity: resume usual activities as tolerated Hygiene: other (Garrett catheter care daily) - Discharge Medications New Ciprofloxacin Tab [Cipro Tab] 500 mg PO BID #7 tablet metroNIDAZOLE TAB [Flagyl Cap/Tab] 250 mg PO TID #30 tablet Enalapril Tab [Vasotec Tab] 10 mg PO BID #60 tablet Continue traZODone [Desyrel] 50 mg PO BEDTIME HYDROcodone/ACETAMIN 7.5-325 [[place] 7.5-325] 1 tablet PO BID PRN PRN Reason: Pain tiZANidine [Zanaflex] 4 mg PO BID Tamsulosin [Flomax] 0.4 mg PO BID Propranolol Tab [Inderal Tab] 40 mg PO DAILY Omeprazole 40 mg PO BID Primidone 100 mg PO BEDTIME Discontinued Gabapentin Cap/Tab [Neurontin Cap/Tab] 300 mg PO BID - Follow Up or Referral Follow Up: Brandt Suarez MD [Physician] - 08/16/16 2:45 am - Forms/Instructions Instructions: Prostatitis (DC), Urinary Retention in Men (GEN), Cystoscopy (DC) , Hypotension (DC) Exam - Constitutional Vitals: Period Temp Pulse Resp BP Sys/Lopez Pulse Ox Last 24 Hr 97.2 F-97.9 F 72-115 16-28 123-145/74-98 96-100 DS: Provider Date of admission: 08/01/16 07:24 Primary care physician: Biju Cutler Attending physician on admission: Iain Robles MD Consults: 08/03/16 18:05 Consult to Case Mgmt/Social Srvs [CONS] Routine Reason for Case Mgmt/Social Srvs: Other Consult Comment: options for in/out catheter assistance 08/04/16 09:49 Consult to Physical Therapy [CONS] Routine Reason for Physical Therapy: Evaluate and Treat 08/04/16 09:50 Consult to Wound Care [facility] [CONS] Routine Reason for Wound Care: Other Consult Comment: buttocks red, but not broken Discharging clinician: Jonathan Giles MD
== END 2016-08-05 16:05 | disposition home or self-care (01) | DRG 872 ==
LOC: N.ED 19:55 → N.EDINP 08-01 02:18 → N.ICU 08-01 10:22 → N.5E 08-02 18:24
PROVIDERS: ADMIT Internal Medicine Infectious Disease; ATTEND Internal Medicine